=== PATIENT | female | born 1955 | race Two or more races ===

== ENCOUNTER 2018-03-11 04:05 | Emergency (ER) | payer OTHER ==
[~2018-03-11] VITALS: Ht 170.2 cm; Wt 89.4 kg
[2018-03-11] MEDS ORDERED: LOSARTAN POTASS25 MG (04:19)
== END 2018-03-11 06:35 | disposition home or self-care (01) ==
LOC: ER 04:05
DX: R10.84 Generalized abdominal pain (principal); R11.2 Nausea with vomiting, unspecified; M54.2 Cervicalgia; R53.1 Weakness